=== PATIENT | female | born 1940 | race American Indian/Alaskan Native ===

== ENCOUNTER 2018-02-17 22:45 | Emergency (ER) | payer MEDICARE ==
[2018-02-17] MEDS ORDERED: APRESOLINE IV ONE (23:02)
[2018-02-17] MEDS ORDERED: ZOFRAN IV ONE (23:02)
[2018-02-17] MEDS ORDERED: NORMODYNE IV ONE ×2 (23:14→23:40)
[2018-02-17 23:36] LABS: Basophils % (Auto) 0.4 % (0.0-1.8); Eosinophils # (Auto) 0.1 K/mm3 (0.0-0.4); Eosinophils % (Auto) 1.8 % (0.0-4.3); Hematocrit 35.1 % (30.3-42.9); Hemoglobin 12.1 gm/dl (10.1-14.3); Lymphocytes # (Auto) 1.6 K/mm3 (1.2-5.4); Lymphocytes % (Auto) 20.6 % (13.4-35.0); Mean Corpuscular HGB Conc 34 % (30-34); Mean Corpuscular Hemoglobin 33 pg (28-32); Mean Corpuscular Volume 96 fl (79-97); Monocytes # (Auto) 0.5 K/mm3 (0.0-0.8); Monocytes % (Auto) 6.7 % (0.0-7.3); Platelet Count 210 K/mm3 (140-440); Red Blood Count 3.64 M/mm3 (3.65-5.03)
[2018-02-17 23:59] LABS: Albumin 3.8 g/dL (3.9-5); Calcium 9.5 mg/dL (8.4-10.2)
[2018-02-18] MEDS ORDERED: TYLENOL PO ONE (00:03)
[2018-02-18] MEDS ORDERED: NARCAN 2 MG/2 ML IV ONE (00:16)
[2018-02-18] MEDS ORDERED: TRIDIL DRIP 50MG/250ML 50 MG/250 ML BOTTLE IV ONE (00:53)
--- NOTE | 2018-02-18 00:57 | XRay Report ---
FINAL REPORT PROCEDURE: XR CHEST 1V AP TECHNIQUE: Chest radiograph anteroposterior view. CPT 32417 HISTORY: chest pain COMPARISON: No prior studies are available for comparison. FINDINGS: Heart: Normal. Mediastinum/Vessels: Normal. Lungs/Pleural space: Normal. Bony thorax: No acute osseous abnormality. Life support devices: None. IMPRESSION: No acute cardiopulmonary abnormality.
--- NOTE | 2018-02-18 01:10 | Cat Scan Report ---
FINAL REPORT PROCEDURE: CT HEAD/BRAIN WO CON TECHNIQUE: Computerized tomography of the head was performed without contrast material. HISTORY: headache, AMS, htn COMPARISON: No prior studies are available for comparison. FINDINGS: There is a hematoma in the vermis of the cerebellum measuring 3.2 x 4.4 centimeters. This causes compression of the aqueduct and 4th ventricle. There is developing obstructive hydrocephalus. There is no specific evidence of herniation. The bony calvarium is intact. The paranasal sinuses are clear. IMPRESSION: There is a hematoma in the vermis of the cerebellum measuring 3.2 x 4.4 centimeters. This causes compression of the aqueduct and 4th ventricle. There is developing obstructive hydrocephalus. Dr. Reyez was notified by telephone at 12:07 a.m. central time.
--- NOTE | 2018-02-18 01:12 | Emergency Department Report ---
HPI - General Chief Complaint: Altered Mental Status Time Seen by Provider: 02/17/18 22:52 - HPI HPI: The patient is a 77-year-old female with a significant history of chronic hypertension, end-stage renal disease, on peritoneal dialysis, who presents for evaluation of altered mental status and vomiting. The patient was found sitting in her car at a gas station approximately 30 minutes prior to arrival with confusion, change in speech, and vomiting. The patient's states that the patient left their home to obtain a few things from the store, and she was asymptomatic with normal mental status prior to leaving. On arrival to the hospital the patient complained of a moderate in severity left-sided headache, pressure-like in quality, constant since onset 30 minutes prior to arrival. She also complained of some associated dizziness and nausea. The patient and family members deny that the patient has experienced fever, head injury, neck pain, neck stiffness, chest pain, cough, dyspnea, abdominal pain, vision or hearing changes, smell or taste changes, facial drooping, seizure-like activity , paresthesias, or new extremity weakness. They share that she has experienced some mild weakness in the right lower leg for a long period of time, but they are not aware of any previous CVA event. ED Past Medical Hx - Past Medical History Previous Medical History?: Yes Hx Hypertension: Yes Hx Congestive Heart Failure: No Hx Diabetes: Yes Hx GERD: Yes Hx Liver Disease: No Hx Renal Disease: Yes (CKD STAGE 4 X 1 1/2 YRS) Hx Arthritis: Yes Hx Asthma: No Hx COPD: No Hx HIV: No - Surgical History Past Surgical History?: Yes Additional Surgical History: peritoneal dialysis catheter placed - Social History Smoking Status: Unknown if ever smoked Substance Use Type: None - Medications Home Medications: Home Medications Medication Instructions Recorded Confirmed Last Taken Type Atorvastatin [Lipitor] 40 mg PO QDAY 11/29/14 12/18/14 12/09/14 11:00 History Carvedilol [Coreg] 12.5 mg PO BID 11/29/14 12/18/14 12/10/14 07:30 History Dorzolamide/Timolol(Nf) 2-0.5% 1 drops OP BID 11/29/14 12/18/14 12/10/14 07:30 History [Cosopt (Nf)] Insulin Aspart [NovoLOG 100 5 unit SQ QPM 06/10/1012/18/14 12/09/14 18:00 History UNITS/ML VIAL] Insulin Aspart [NovoLOG 100 9 unit SQ AC 11/29/14 12/18/14 12/09/14 11:00 History UNITS/ML VIAL] Insulin Glargine,Hum.rec.anlog 38 unit SQ AMHY 11/29/14 12/18/14 12/09/14 09:00 History [Lantus Solostar] LORazepam [Ativan] 1 mg PO TID PRN 11/29/14 12/18/14 Unknown History Latanoprost 0.005% 1 drop OP QPM 11/29/14 12/18/14 12/09/14 19:00 History Mecobal/Levomefolat Ca/B6 Phos 1 each PO QDAY 11/29/14 12/18/14 Unknown History [Foltanx Tablet] Nisoldipine 25.5 mg PO QDAY 11/29/14 12/18/14 12/10/14 07:30 History Pantoprazole [Protonix TAB] 40 mg PO QDAY 11/29/14 12/18/14 12/09/14 11:00 History Valsartan/Hydrochlorothiazide 1 tab PO QDAY 11/29/14 12/18/14 12/09/14 11:00 History [Diovan Hct 80-12.5 mg] HYDROcodone/ACETAMINOPHEN [Lorcet 1 each PO Q4-6H PRN #20 tablet 12/10/14 Unknown Rx 5-325 mg Tablet] Ondansetron [Zofran] 4 mg PO Q6HR PRN #14 tablet 12/10/14 12/18/14 Unknown Rx ED Review of Systems ROS: Stated complaint: AMS Other details as noted in HPI Constitutional: denies: fever ENT: denies: throat or neck pain Respiratory: denies: cough, shortness of breath Cardiovascular: denies: chest pain Endocrine: denies unexplained weight loss or gain Gastrointestinal: denies: abdominal pain reports nausea Genitourinary: denies: dysuria Musculoskeletal: denies: leg swelling Skin: denies: rash Neurological: reports headache and dizziness Hematological/Lymphatic: denies: easy bleeding or easy bruising Psych: denies sadness or hopelessness Physical Exam - Physical Exam Vital Signs: Vital Signs 02/17/18 02/17/1818 22:55 23:00 23:03 Temperature 97.8 F Pulse Rate 72 68 Respiratory 24 Rate Blood Pressure 229/95 229/85 O2 Sat by Pulse 99 96 98 Oximetry 02/17/18 02/17/18 02/17/18 23:16 23:19 23:40 Temperature Pulse Rate 66 68 Respiratory 20 Rate Blood Pressure 204/91 O2 Sat by Pulse 98 Oximetry 02/18/18 00:00 Temperature Pulse Rate 67 Respiratory Rate Blood Pressure 214/99 O2 Sat by Pulse Oximetry Physical Exam: General: well-nourished, well-developed, no acute distress Head: Normocephalic, atraumatic Eyes: normal sclera, EOMI, PERRL, ENT: Mucous membranes are pink and moist Neck: trachea midline, neck supple, No neck stiffness, no cervical adenopathy Respiratory: Breath sounds equal bilaterally, no wheezing, rales, or rhonchi Cardio: S1 and S2 present, no murmurs, rubs, gallops, capillary refill is brisk Abdomen: Normoactive bowel sounds, soft abdomen, no tenderness to palpation, no rigidity, no guarding or rebound tenderness Musc: No pitting edema Skin: No rash Neuro: mildly drowsy, oriented 3, no facial drooping, speech soft but not slurred, no gross visual field deficits, mild right lower leg weakness ( baseline per family), no other motor weakness, sensation intact, reflexes 2+ symmetric on DTR testing, no coordination deficit with finger to nose or heel-to -teixeira testing, Babinski downgoing Psych: Normal affect ED Course Vital Signs 02/17/18 02/17/18 02/17/18 22:55 23:00 23:03 Temperature 97.8 F Pulse Rate 72 68 Respiratory 24 Rate Blood Pressure 229/95 229/85 O2 Sat by Pulse 99 96 98 Oximetry 02/17/18 02/17/18 02/17/18 23:16 23:19 23:40 Temperature Pulse Rate 66 68 Respiratory 20 Rate Blood Pressure 204/91 O2 Sat by Pulse 98 Oximetry 02/18/18 00:00 Temperature Pulse Rate 67 Respiratory Rate Blood Pressure 214/99 O2 Sat by Pulse Oximetry - Reevaluation(s) Reevaluation #1: 02/18/18 01:04 Contacted the [place] neurosurgeon Dr. Royal, who discussed the patient's case and agreed to accept transfer of care of the patient. ED Medical Decision Making - Lab Data Result diagrams: 02/17/18 23:20 02/17/18 23:20 - Medical Decision Making The patient was seen and examined by myself. The patient is placed on a awake overnight monitor and continuous pulse ox. On initial evaluation, the patient was found to be in no distress. Evaluation orders were placed. The patient was given IV labetalol and IV hydralazine for elevated blood pressure, IV Zofran for her nausea, and a tablet of tylenol for her pain. Lab results revealed elevated glucose of 250, elevated BUN, elevated creatinine, and elevated BNP. During ED course the patient developed mild dysarthria and increasing drowsiness , although the patient is easily arousable to verbal stimuli and protecting airway. CT scan of the head revealed intracranial hemorrhage and the sella Leni vermis with compression of the aqueduct and fourth ventricle and developing hydrocephalus. The patient was started on a nitroglycerin drip and blood pressure improved to 180/81. Nitroglycerin will be titrated to maintain systolic blood pressure less than 160. The [place] transfer center was contacted. The on-call neurosurgeon Dr. Royal discussed the patient's case and agreed to accept transfer of care of the patient. The patient will be transferred in guarded condition. Critical care attestation.: If time is entered above; I have spent that time in minutes in the direct care of this critically ill patient, excluding procedure time. ED Disposition Clinical Impression: Hemorrhagic stroke, Hypertensive emergency, Acute hyperglycemia, ESRD on dialysis Altered mental status Qualifiers: Altered mental status type: transient alteration of awareness Qualified Code(s) : R40.4 - Transient alteration of awareness Disposition: DC/TX-70 ANOTHER TYPE HLTHCARE Is pt being admited?: No Does the pt Need Aspirin: No Condition: Critical Instructions: Hypertension (ED) Referrals: PRIMARY CARE, [Primary Care Provider] - 3-5 Days Time of Disposition: 12:50 - Assessment Assessment Interval: Baseline - Level of Consciousness 1a. Level of Consciousness: alert - LOC Questions 1b. LOC Questions: answers correctly - LOC Command 1c. LOC Commands: performs tasks correctly - Best Gaze 2. Best Gaze: normal - Visual 3. Visual: no visual loss - Facial Palsy 4. Facial Palsy: normal symmetrical movement - Motor Arm 5b. Motor Arm Right: no drift 5a. Motor Arm Left: no drift - Motor Leg 6a. Motor Leg Left: no drift 6b. Motor Leg Right: drift - Limb Ataxia 7. Limb Ataxia: present 1 limb - Sensory 8. Sensory: normal - Best Language 9. Best Language: no aphasia - Dysarthria 10. Dysarthria: normal - Extinction and Inattention 11. Extinction/Inattention: no abnormality - Scoring Total Score: 2 Stroke Severity: Minor Stroke
[2018-02-18 02:09] LABS: INR 0.92 (0.87-1.13); Partial Thromboplastin Time 28.1 Sec. (24.2-36.6)
[2018-02-18 02:31] VITALS: BP 206/100
== END 2018-02-18 02:30 | disposition other institution (70) ==
LOC: ED 22:45
DX: I62.9 Nontraumatic intracranial hemorrhage, unspecified (principal); I16.1 Hypertensive emergency; E11.65 Type 2 diabetes mellitus with hyperglycemia; R41.82 Altered mental status, unspecified; I12.0 Hypertensive chronic kidney disease with stage 5 chronic kidney disease or end stage renal disease; E11.22 Type 2 diabetes mellitus with diabetic chronic kidney disease; N18.6 End stage renal disease; K21.9 Gastro-esophageal reflux disease without esophagitis; M19.90 Unspecified osteoarthritis, unspecified site; Z99.2 Dependence on renal dialysis; Z79.4 Long term (current) use of insulin
CPT/HCPCS: 36415; 70450; 71045; 80053; 82550; 83690; 83880; 84484; 85025; 85610; 85730; 96365; 96375; 99285; G0480; J0360; J2310; J2405; 80320